=== PATIENT | female | born 1950 | race Caucasian/White ===

== ENCOUNTER 2021-08-02 18:44 | Inpatient (IN) | payer BC ==
--- NOTE | 2019-08-06 07:24 | NUR ---
GIVE PATIENT REPORT TO MORNING NURSE KEVIN . PATIENT IS ALERT AND ORIENTED X4
[~2021-08-02] VITALS: Ht 147.3 cm; Wt 65.8 kg
[2021-08-02 19:01] VITALS: BP 169/95
[2021-08-02] MEDS ORDERED: ACETAMINOPHEN EXTRA STRENGTH 500 MG TAB PO ONE (22:30)
[2021-08-02] MEDS ORDERED: KETOROLAC 30 MG/ML VIAL IM ONE (22:30)
--- NOTE | 2021-08-02 22:32 | NUR ---
PT TAKEN TO ER BED 12
--- NOTE | 2021-08-02 23:12 | NUR ---
71 Y/O FEMALE BIBS, C/O PAIN TO BACK S/P FALL. PT STATES SHE GOT DIZZY AND FELL AND HURT HER BACK. DENIES N/V/D; SKIN IS PINK/WARM/DRY; AAOX4 WITH WEAK AND UNSTEADY GAIT; LUNGS CLEAR BL; HR EVEN AND REGULAR; PT DENIES ANY FEVER, CP, SOB, OR COUGH AT THIS TIME; PATIENT STATES PAIN OF 10/10 ON PALPATION AT THIS TIME; VSS; PATIENT POSITIONED FOR COMFORT; HOB ELEVATED; BEDRAILS UP X2; BED DOWN. ER MD MADE AWARE OF PT STATUS. HX: HTN, DM NKA MED: TAKES A MED FOR HTN (UNK)
[2021-08-02 23:54] LABS: BASOPHILS % (AUTO) 0.4 % (0.0-2.0); EOSINOPHILS # (AUTO) 0.2 K/uL (0-0.4); EOSINOPHILS % (AUTO) 1.5 % (0.0-4.0); HEMATOCRIT 39.3 % (36-48); HEMOGLOBIN 13.2 g/dL (12.0-16.0); LYMPHOCYTES % (AUTO) 19.9 % (20.5-51.1); MEAN CORPUSCULAR HEMOGLOBIN 30 pg (27-31); MEAN CORPUSCULAR HGB CONC 34 g/dL (33-37); MEAN CORPUSCULAR VOLUME 90.4 fL (80-94); MONOCYTES # (AUTO) 0.6 K/uL (0.8-1.0); MONOCYTES % (AUTO) 6.1 % (1.7-9.3); NEUTROPHILS # (AUTO) 7.4 K/uL (1.8-7.7); NEUTROPHILS % (AUTO) 72.1 % (42.2-75.2); PLATELET COUNT (AUTO) 218 K/uL (140-450); RED BLOOD CELL COUNT(AUTO) 4.35 MIL/uL (4.20-5.40); RED CELL DISTRIBUTION WIDTH 13.2 % (11.6-13.7); WHITE BLOOD COUNT (AUTO) 10.2 K/uL (4.8-10.8)
[2021-08-03 00:02] LABS: APPEARANCE,URINE CLEAR (CLEAR); BILIRUBIN,URINE NEGATIVE (NEGATIVE); BLOOD, URINE TRACE-L (NEGATIVE); COLOR,URINE YELLOW (YELLOW); LEUKOCYTE ESTERASE ,URINE 1+ (NEGATIVE); NITRITE, URINE NEGATIVE (NEGATIVE); UGLUCOSE NEGATIVE (NEGATIVE)
[2021-08-03 00:14] LABS: RBC,URINE 0-5 /HPF (0-5)
[2021-08-03 00:16] LABS: ALBUMIN 3.5 g/dL (3.4-5.0); ANION GAP 10.6 (8-16); ASPARTATE AMINOTRANSFERASE 21 U/L (15-37); CARBON DIOXIDE 26.3 mmol/L (21-32); CHLORIDE 104 mmol/L (98-107); CREATININE 0.8 mg/dL (0.6-1.3); GLUCOSE 137 mg/dL (74-106); POTASSIUM 3.9 mmol/L (3.5-5.1); SODIUM SERUM 137 mmol/L (136-145); TOTAL BILIRUBIN 0.3 mg/dL (0.0-1.0); UREA NITROGEN, BLOOD 15 mg/dL (7-18)
[2021-08-03] MEDS ORDERED: cefTRIAXone 1,000 MG VIAL ONE (00:50)
--- NOTE | 2021-08-03 01:03 | NUR ---
SQL DATABASE PROGRAMMER AT BEDSIDE
--- NOTE | 2021-08-03 02:32 | NUR ---
COVID/REJI SWAB COLLECTED AND WALKED TO LAB.
[2021-08-03] MEDS ORDERED: ENAL-197 PO (02:33)
[2021-08-03] MEDS ORDERED: MORPHINE SULFATE 4 MG/ML SYR IVP PRN ×2 (03:10→03:15)
[2021-08-03] MEDS ORDERED: NACL 0.9% 1,000 ML IV SCH (03:10)
[2021-08-03] MEDS: NACL 0.9% 1,000 ML IV SCH ×4 (03:15→23:49)
--- NOTE | 2021-08-03 04:53 | NUR ---
Patient will be admitted to care of DR MAURICIO. Admited to TELE. Will go to room 104B. Belongings list completed. Report to NANDINI HUGGINS.
[2021-08-03 05:07] VITALS: BP 136/70
--- NOTE | 2021-08-03 05:15 | NUR ---
71/F BIB ED RN PAT AND EMT [facility] WITH CHIEF COMPLAINT OF S/P GROUND LEVEL FALL. A&OX4 PASHTO SPEAKING ONLY. PATIENT DOES NOT UNDERSTAND GAMBIAN. VERBALLY RESPONSIVE AND ABLE TO COMMUNICATE NEEDS. HEAD TO TOE ASSESSMENT COMPLETED WITH SHRADDHA TINSLEY. MARCO. PER MEDICAL RECORD, PATIENT FELT DIZZY BEFORE FALLING BUT DENIES LOC OR HEAD TRAUMA. PATIENT HAS AN IV SITE TO THE LAC 20G PATENT/INTACT WITH NS INFUSING AT 60 ML/HR. PATIENT IS CONTINENT OF VOID AND BM. SKIN IS INTACT. PATIENT IS AMBULATORY. MRSA SWAB COLLECTED. ID BAND APPLIED. ORIENTED TO CALL LIGHT, BED CONTROL, TV, VISITING HOURS, AND BATHROOM.
--- NOTE | 2021-08-03 06:53 | NUR ---
PATIENT HAS BEEN SCREENED AND CATEGORIZED LOW NUTRITION RISK. PATIENT WILL BE SEEN WITHIN 7 DAYS OF ADMISSION. 08/09/21 RECEIVED REFERRAL FOR NEWLY DIAGNOSED DIABETIC; NOT APPLICABLE [address]
--- NOTE | 2021-08-03 07:25 | NUR ---
ENDORSED PATIENT TO NANDINI EDEN FOR CONTINUITY OF CARE. PATIENT IS STABLE.
--- NOTE | 2021-08-03 07:26 | NUR ---
RECEIVED REPORT FROM STEAK SAUCE MAKER NURSE, BHAVNA, FOR CONTINUITY OF CARE. PT IS IN BED RESTING AT THIS TIME. RESPIRATIONS ARE EVEN AND UNLABORED ON ROOM AIR. PT IS ALERT AND ORIENTED X4, ABLE TO VERBALIZE NEEDS IN FAROESE ONLY. PT IS ON CARDIAC MONITORING, SR. PT IS ON REGULAR DIET, ABD IS NONTENDER, NONDISTENDED WITH BOWEL SOUNDS PRESENT. PT IS CONTINENT OF BOWEL AND BLADDER. PT SKIN IS WARM, DRY, AND INTACT. IV TO L AC 20G. CALL LIGHT WITHIN REACH. ALL SAFETY MEASURES IN PLACE. WILL CONTINUE TO MONITOR.
[2021-08-03 08:00] VITALS: BP 158/89
[2021-08-03] MEDS ORDERED: ONDANSETRON 4 MG/2 ML VIAL IM/IVP PRN (10:35)
[2021-08-03] MEDS ORDERED: POTASSIUM CHLORIDE 10 MEQ TABER PO PRN (10:35)
[2021-08-03] MEDS ORDERED: DOCUSATE SODIUM 100 MG GELCAP PO PRN (10:35)
[2021-08-03] MEDS ORDERED: ACETAMINOPHEN 325 MG TAB PO PRN (10:35)
[2021-08-03] MEDS ORDERED: ZOLPIDEM 5 MG TAB PO PRN (10:35)
[2021-08-03] MEDS ORDERED: guaiFENesin DM 200/20 MG-10 ML 10 ML UDC PO PRN (10:35)
[2021-08-03] MEDS: ENALAPRIL 10 MG TAB PO SCH (10:55)
--- NOTE | 2021-08-03 10:55 | NUR ---
ADMINISTERED SCHEDULED MEDICATION. EDUCATED PT REGARDING MEDS ADMINISTERED. PT VERBALIZED UNDERSTANDING. WILL CONTINUE TO MONITOR.
--- NOTE | 2021-08-03 11:29 | NUR ---
DC PLANNIN YRS OLD FEMALE PATIENT WAS ADMITTED FROM HOME WITH A DX OF UTI, FALL /LUMBAR SPINE FRACTURE. PATIENT HAS A HX OF HTN AND DM. CXR SHOWED NO EVIDENCE FOR ACUTE CARDIOPULMONARY DISEASE. XRAY AND CT LUMBER SPINE SHOWED ACUTE SUPERIOR ENDPLATE COMPRESSION FRACTURE OF THE [id number] BODY. RAPID COVID TEST NEGATIVE. ADMINISTERED IVF, IV ABX ROCEPHIN. URINE AND BLOOD CULTURE PENDING. CONSULT WITH ORTHO DR BERMAN. DC PLAN TO GO HOME WHEN STABLE. CM TO FOLLOW Addendum: 08/07/21 at 1254 by Nany Cruz RN DC PLANNING: RECEIVED A FAX FROM [employer] REQUESTING PROCEDURE NOTES AND DETAILES THAT WAS ON THE FORM. FAXED BACK THE FORM. RECEIVED A CALL FROM [facility]ARTA [facility] STATED [facility] IS DELEGATED. CALLED [facility] SPOKE WITH MOHIT [phone] REQUESTED THE ORDER TO BE FAX TO [phone] AND WILL CALL [employer]. CM TO FOLLOW Addendum: 08/07/21 at 1529 by Nany Cruz RN DC PLANNING: HAROON LOZANO AT [facility] [phone] STATED THEY APPROVED THE BRACE AND WILL SEND IT TO [facility] ETA AFTER 5PM . NOTIFIED MAURO LLANES.
--- NOTE | 2021-08-03 11:38 | NUR ---
NOTIFIED ORTHO DOCTOR DR. BERMAN VIA MESSAGE ABOUT NEW CONSULT FOR SPINAL FRACTURE PER DR. MAURICIO. WILL WAIT FOR RESPONSE.
[2021-08-03] MEDS: HYDROcodone/APAP 7.5/325 MG 1 TAB PO PRN ×2 (11:41→19:44)
--- NOTE | 2021-08-03 11:46 | NUR ---
PT COMPLAINTS OF PAIN, STATES PAIN IS 6/10. MEDICATED. WILL CONTINUE TO MONITOR.
[2021-08-03 12:00] VITALS: BP 145/75
[2021-08-03 12:46] LABS: PROTHROMBIN TIME 9.9 secs (10.8-13.4)
--- NOTE | 2021-08-03 12:46 | NUR ---
WENT TO RE-ASSESS PT PAIN. PT IN BED SLEEPING AT THIS TIME. RESPIRATIONS ARE EVEN AND UNLABORED. NO SIGNS OF PAIN OR DISCOMFORT NOTED. WILL CONTINUE TO MONITOR.
[2021-08-03 13:27] LABS: FREE T4 (FREE THYROXINE) 0.81 ng/dL (0.76-1.46); MAGNESIUM 1.9 mg/dL (1.8-2.4); THYROID STIMULATING HORMONE 4.15 uIU/mL (0.34-3.74)
--- NOTE | 2021-08-03 14:27 | NUR ---
DR MAURICIO HAD PLACED ORDER FOR CONSULT WITH DR BERMAN. INFORMED DR BERMAN THAT HE HAD CONSULT WITH PT FOR SPINAL FRACTURE. DR BERMAN REPLIED "I DONT DO SPINE" DR MAURICIO MADE AWARE. DR MAURIICO REPLIED "WE KNOW YOU DONT DO SPINE BUT RECOMMENDATIONS ARE APPRECIATED". TO THAT, DR BERMAN REPLIED "I DO NOT DO SPINE, THEREFORE I CANNOT GIVE RECOMMENDATIONS".
[2021-08-03 16:00] VITALS: BP 134/76
--- NOTE | 2021-08-03 17:02 | NUR ---
PT PRESSED CALL LIGHT. STATED SHE WANTED SOMEONE TO STAND BY WHILE SHE ATTEMPTS TO AMBULATE TO REST ROOM. ASSISTED PT TO REST ROOM. PT TOLERATED WELL. WILL CONTINUE TO MONITOR.
--- NOTE | 2021-08-03 19:37 | NUR ---
ENDORSED PT TO VASCULAR NURSE NURSE FOR CONTINUITY OF CARE. ALL NEEDS MET THROUGHOUT SHIFT. PT IS STABLE.
--- NOTE | 2021-08-03 19:38 | NUR ---
RECEIVED ENDORSEMENT FROM AM NURSE. PATIENT IS WELL RESTED, ON ROOM AIR. NO SOB NOTED. COMPLAINED OF MODERATE BACK PAIN, WILL MEDICATE. SAFETY MEASURES IN PLACE. IVF NS INFUSING AT 60 ML/HR. CALL LIGHT WITHIN REACH. DAUGHTER IN LAW AT BEDSIDE. WILL CONTINUE TO MONITOR PT.
[2021-08-03 20:00] VITALS: BP 144/73
--- NOTE | 2021-08-03 20:48 | NUR ---
ROCEPHINE ADMINISTERED ORDERED.
[2021-08-04] VITALS: BP 140/74
--- NOTE | 2021-08-04 01:10 | NUR ---
ANSWERED CALL LIGHT, NEEDS ATTENDED TO.
[2021-08-04] MEDS: NACL 0.9% 1,000 ML IV SCH ×2 (03:15→20:09)
[2021-08-04 04:00] VITALS: BP 128/62
--- NOTE | 2021-08-04 04:02 | NUR ---
PATIENT SLEEPING. OBSERVED CHEST RISE AND FALL. NO SOB NOTED. CALL LIGHT WITHIN REACH.
--- NOTE | 2021-08-04 07:10 | NUR ---
RECEIVED REPORT FROM PRESCHOOL SUBSTITUTE TEACHER NURSE FOR CONTINUITY OF CARE. PT IS SLEEPING AT THIS TIME EASILY AROUSABLE BY VERBAL STIMULI. RESPIRATIONS EVEN AND UNLABORED. NO SIGNS OF DISTRESS NOTED. A&O4. SKIN IS INTACT, DRY AND WARM TO TOUCH. IV AT LEFT WRIST G 22 INFUSING NS 60ML/HR. CALL LIGHT WITHIN REACH. SAFETY PRECAUTIONS IN PLACE. WILL CONTINUE TO MONITOR.
[2021-08-04 07:18] LABS: BASOPHILS % (AUTO) 0.3 % (0.0-2.0); EOSINOPHILS # (AUTO) 0.2 K/uL (0-0.4); HEMATOCRIT 37.5 % (36-48); HEMOGLOBIN 12.4 g/dL (12.0-16.0); LYMPHOCYTES % (AUTO) 24.1 % (20.5-51.1); MEAN CORPUSCULAR HEMOGLOBIN 30 pg (27-31); MEAN CORPUSCULAR HGB CONC 33 g/dL (33-37); MEAN CORPUSCULAR VOLUME 91.3 fL (80-94); MONOCYTES # (AUTO) 0.7 K/uL (0.8-1.0); MONOCYTES % (AUTO) 8.4 % (1.7-9.3); NEUTROPHILS # (AUTO) 5.4 K/uL (1.8-7.7); NEUTROPHILS % (AUTO) 65.2 % (42.2-75.2); PLATELET COUNT (AUTO) 204 K/uL (140-450); RED BLOOD CELL COUNT(AUTO) 4.11 MIL/uL (4.20-5.40); RED CELL DISTRIBUTION WIDTH 12.7 % (11.6-13.7); WHITE BLOOD COUNT (AUTO) 8.3 K/uL (4.8-10.8)
--- NOTE | 2021-08-04 07:20 | NUR ---
PATIENT IS STABLE. ENDORSED TO AM NURSE FOR CONTINUITY OF CARE
[2021-08-04 07:29] LABS: ANION GAP 10.9 (8-16); CARBON DIOXIDE 26.8 mmol/L (21-32); CHLORIDE 105 mmol/L (98-107); CREATININE 0.7 mg/dL (0.6-1.3); GLUCOSE 111 mg/dL (74-106); POTASSIUM 3.7 mmol/L (3.5-5.1); SODIUM SERUM 139 mmol/L (136-145); UREA NITROGEN, BLOOD 12 mg/dL (7-18)
[2021-08-04 08:00] VITALS: BP 153/76
[2021-08-04 08:08] LABS: T4 (THYROXINE) 7.6 ug/dL (4.5-12.0)
[2021-08-04] MEDS: ENALAPRIL 10 MG TAB PO SCH (09:07)
[2021-08-04] MEDS: PANTOPRAZOLE 40 MG TABEC PO SCH (09:07)
[2021-08-04] MEDS: HYDROcodone/APAP 7.5/325 MG 1 TAB PO PRN ×2 (09:11→20:12)
--- NOTE | 2021-08-04 09:11 | NUR ---
ALL MORNING MEDS ADMINISTERED. PT COMPLAINT OF PAIN 6/10 ON HER BACK. MEDICATED PER PRN ORDER. PT TEACHINGS ABOUT MEDS DONE. PT VERBALIZED UNDERSTANDING. WILL CONTINUE TO MONITOR.
--- NOTE | 2021-08-04 11:38 | NUR ---
PT IN BED WITH FAMILY AT BEDSIDE. NO SIGNS OF DISTRESS NOTED. PT AMBULATES TO THE REST ROOM TO URINATE.
[2021-08-04 12:00] VITALS: BP 120/66
--- NOTE | 2021-08-04 13:50 | NUR ---
PT SITTING AT BEDSIDE WITH FAMILY MEMBER. BREATHING EVEN AND UNLABORED AT ROOM AIR. WILL CONTINUE TO MONITOR.
[2021-08-04 16:00] VITALS: BP 127/68
--- NOTE | 2021-08-04 16:05 | NUR ---
PT IS SLEEPING AT THIS TIME, STILL WITH FAMILY MEMBER AT BEDSIDE. NO SIGNS OF DISTRESS NOTED. BREATHING EVENLY AND UNLABORED.
--- NOTE | 2021-08-04 19:15 | NUR ---
ENDORSED PT TO MARINE EQUIPMENT DESIGN ENGINEER NURSE FOR CONTINUITY OF CARE. ALL NEEDS MET THROUGHOUT SHIFT. PT IS STABLE.
[2021-08-04 20:00] VITALS: BP 122/67
--- NOTE | 2021-08-04 20:00 | NUR ---
GET REPORT FROM MORNING NURSE, PATIENT IS LYING ON BED ,PATIENT IS ALERT AND ORIENTED X4, NO ANY COMPLAIN OF SHORTNESS OF BREATH AT THIS TIME, PATIENT IS COMPLAINING PAIN 6/10, MEDICATED PATIENT, WILL REASSESS PAIN LEVEL , VITAL SIGN IS WITHIN THE NORMAL RANGE , ALL DUE MEDS ARE GIVEN PER DR ORDER, CALL LIGHT IS WITHIN THE REACH, WILL CONTINUE TO MONITOR
[2021-08-05] VITALS: BP 129/59
--- NOTE | 2021-08-05 | NUR ---
PATIENT IS LYING ON BED ,PATIENT IS ALERT AND ORIENTED X4, NO ANY COMPLAIN OF PAIN OR SHORTNESS OF BREATH AT THIS TIME, VITAL SIGN IS WITHIN THE NORMAL RANGE , ALL DUE MEDS ARE GIVEN PER DR ORDER, HELPED TO CHANGE PATIENT DIAPER, CALL LIGHT IS WITHIN THE REACH, WILL CONTINUE TO MONITOR
--- NOTE | 2021-08-05 02:56 | NUR ---
CHECKED PATIENT, PT IS SLEEPING. OBSERVED CHEST RISE AND FALL SYMMETRICALLY. NO SOB NOTED. CALL LIGHT WITHIN REACH.
[2021-08-05 04:00] VITALS: BP 142/74
--- NOTE | 2021-08-05 04:40 | NUR ---
PATIENT IS LYING ON BED ,PATIENT IS ALERT AND ORIENTED X4, NO ANY COMPLAIN OF PAIN OR SHORTNESS OF BREATH AT THIS TIME, VITAL SIGN IS WITHIN THE NORMAL RANGE , HELPED TO CHANGE PATIENT DIAPER, CALL LIGHT IS WITHIN THE REACH, WILL CONTINUE TO MONITOR
[2021-08-05 06:54] LABS: BASOPHILS % (AUTO) 0.4 % (0.0-2.0); EOSINOPHILS # (AUTO) 0.2 K/uL (0-0.4); EOSINOPHILS % (AUTO) 2.3 % (0.0-4.0); HEMATOCRIT 36.9 % (36-48); HEMOGLOBIN 12.3 g/dL (12.0-16.0); LYMPHOCYTES # (AUTO) 2.5 K/uL (2.5-16.5); LYMPHOCYTES % (AUTO) 35.7 % (20.5-51.1); MEAN CORPUSCULAR HEMOGLOBIN 30 pg (27-31); MEAN CORPUSCULAR HGB CONC 33 g/dL (33-37); MEAN CORPUSCULAR VOLUME 91.1 fL (80-94); MONOCYTES # (AUTO) 0.7 K/uL (0.8-1.0); MONOCYTES % (AUTO) 10.3 % (1.7-9.3); NEUTROPHILS # (AUTO) 3.6 K/uL (1.8-7.7); NEUTROPHILS % (AUTO) 51.3 % (42.2-75.2); PLATELET COUNT (AUTO) 202 K/uL (140-450); RED BLOOD CELL COUNT(AUTO) 4.05 MIL/uL (4.20-5.40); RED CELL DISTRIBUTION WIDTH 12.9 % (11.6-13.7)
[2021-08-05 07:09] LABS: ANION GAP 8.3 (8-16); CARBON DIOXIDE 29.3 mmol/L (21-32); CHLORIDE 106 mmol/L (98-107); CREATININE 0.8 mg/dL (0.6-1.3); GLUCOSE 103 mg/dL (74-106); POTASSIUM 3.6 mmol/L (3.5-5.1); SODIUM SERUM 140 mmol/L (136-145); UREA NITROGEN, BLOOD 10 mg/dL (7-18)
--- NOTE | 2021-08-05 07:30 | NUR ---
RECEIVED BEDSIDE REPORT FROM ONLINE USER EXPERIENCE STRATEGIST NURSE FOR CONTINUOS OF CARE, PT RESTING, NO DISTRESS NOTED, LITHUANIAN SPEAKING. IV TO LEFT FA 22G, PT ACCIDENTLY PULLED IT OUT, NEW IV INSERTED TO LEFT HAND 22G PATENT INTACT. PT ON ROOM AIR, NO SOB NOTED, INITIAL ASSESSMENT DONE, ALL SAFETY PRECAUTION MET, CALL LIGHT WITHIN REACH, WILL CONTINUE TO MONITOR.
[2021-08-05 08:00] VITALS: BP 161/82
--- NOTE | 2021-08-05 08:10 | NUR ---
DR ONOFRE AT BEDSIDE TALKING TO PT DAUGHTER AND PT.
[2021-08-05] MEDS: PANTOPRAZOLE 40 MG TABEC PO SCH (08:46)
[2021-08-05] MEDS: ENALAPRIL 10 MG TAB PO SCH (08:46)
[2021-08-05] MEDS: HYDROcodone/APAP 7.5/325 MG 1 TAB PO PRN ×2 (08:46→19:35)
--- NOTE | 2021-08-05 08:46 | NUR ---
DUE MEDICATIONS ADMINISTERED, PT TOLERATED WELL, NO DISTRESS NOTED, PT C/O PAIN TO THE BACK, MEDICATION GIVEN, WILL CONTINUE TO MONITOR.
--- NOTE | 2021-08-05 11:02 | NUR ---
PT STATED WANT TO SIT ON BEDSIDE CHAIR, PT WENT TO CHAIR WITH HELP OF STATE SUPERINTENDENT OF SCHOOLS AND FAMILY MEMBER WHO IS AT BEDSIDE, TOLERATED WELL, WILL CONTINUE TO MONITOR.
[2021-08-05 12:00] VITALS: BP 161/82
[2021-08-05] MEDS: NACL 0.9% 1,000 ML IV SCH (12:36)
--- NOTE | 2021-08-05 13:00 | NUR ---
PT RESTING, NO DISTRESS NOTED, WILL CONTINUE TO MONITOR.
[2021-08-05 16:00] VITALS: BP 124/55
--- NOTE | 2021-08-05 17:10 | NUR ---
PT SLEEPING, FAMILY AT BEDSIDE, WILL CONTINUE TO MONITOR.
--- NOTE | 2021-08-05 19:30 | NUR ---
ENDORSED PT TO CHORAL DIRECTOR NURSE FOR CONTINUOUS OF CARE.
--- NOTE | 2021-08-05 19:31 | NUR ---
RECEIVED REPORT FROM NURSE FOR CONTINUITY OF CARE.
--- NOTE | 2021-08-05 19:35 | NUR ---
PT C/O 11/28 BACK PAIN. NORCO 1 TAB 5/325 GIVEN. PT RESTING , DOZING. AT 2029 PT REPORTED SHE FELT BETTER, PAIN NOW A 4. L HAND 22G IV INFUSING NS @60CC/HR. PLAN BY ORTHO DR. KIMBLE, JEREMIAH IS TO D/C PT HOME SOON ASSHE GETS A TLSO BRACE.
[2021-08-06] MEDS: NACL 0.9% 1,000 ML IV SCH ×2 (05:23→21:55)
[2021-08-06 06:50] LABS: BASOPHILS % (AUTO) 0.6 % (0.0-2.0); EOSINOPHILS # (AUTO) 0.2 K/uL (0-0.4); EOSINOPHILS % (AUTO) 2.3 % (0.0-4.0); HEMATOCRIT 35.6 % (36-48); HEMOGLOBIN 11.9 g/dL (12.0-16.0); LYMPHOCYTES # (AUTO) 2.8 K/uL (2.5-16.5); LYMPHOCYTES % (AUTO) 39.4 % (20.5-51.1); MEAN CORPUSCULAR HEMOGLOBIN 31 pg (27-31); MEAN CORPUSCULAR HGB CONC 34 g/dL (33-37); MONOCYTES # (AUTO) 0.7 K/uL (0.8-1.0); MONOCYTES % (AUTO) 9.5 % (1.7-9.3); NEUTROPHILS # (AUTO) 3.4 K/uL (1.8-7.7); NEUTROPHILS % (AUTO) 48.2 % (42.2-75.2); PLATELET COUNT (AUTO) 210 K/uL (140-450); RED BLOOD CELL COUNT(AUTO) 3.91 MIL/uL (4.20-5.40); RED CELL DISTRIBUTION WIDTH 12.8 % (11.6-13.7); WHITE BLOOD COUNT (AUTO) 7.1 K/uL (4.8-10.8)
[2021-08-06 06:59] LABS: ANION GAP 11.4 (8-16); CARBON DIOXIDE 26.1 mmol/L (21-32); CHLORIDE 106 mmol/L (98-107); CREATININE 0.7 mg/dL (0.6-1.3); GLUCOSE 107 mg/dL (74-106); POTASSIUM 3.5 mmol/L (3.5-5.1); SODIUM SERUM 140 mmol/L (136-145); UREA NITROGEN, BLOOD 13 mg/dL (7-18)
--- NOTE | 2021-08-06 07:30 | NUR ---
PT SLEPT SOUNDLY ALL NIGHT. NS @60CC/HR INFUSING ORDERED. ENDORSED REPORT TO DAY SHIFT FOR FOLLOW UP CARE.
--- NOTE | 2021-08-06 07:46 | NUR ---
got report from the night nurse, pt resting in bed, iv fluid is infusing as ordered.[email or web address]
[2021-08-06] MEDS: PANTOPRAZOLE 40 MG TABEC PO SCH (08:30)
[2021-08-06] MEDS: ENALAPRIL 10 MG TAB PO SCH (08:30)
[2021-08-06] MEDS ORDERED: TRAM50TA1 PO (09:22)
[2021-08-06] MEDS ORDERED: CEPH-588 PO (09:26)
[2021-08-06 11:14] VITALS: BP 141/62
[2021-08-06 16:00] VITALS: BP 152/75
--- NOTE | 2021-08-06 19:30 | NUR ---
RECEIVED ENDORSEMENT FROM SHRADDHA WADE FOR CONTINUITY OF CARE. PATIENT IS AWAKE AND STABLE. A&OX4 NIUEAN SPEAKING ONLY. VERBALLY RESPONSIVE AND ABLE TO COMMUNICATE NEEDS. C/O LOWER BACK PAIN 5/10. WILL MEDICATE PER PRN ORDER. ON ROOM AIR WITH NO APPARENT S/SX OF ACUTE DISTRESS. RESPIRATIONS EVEN AND UNLABORED. AMBULATORY AND CONTINENT OF URINE AND VOID. IV SITE TO THE RIGHT HAND 22G IS PATENT/INTACT WITH NS INFUSING AT 60 ML/HR. PLAN OF CARE AND WHITE COMMUNICATION BOARD UPDATED. ALL SAFETY MEASURES IN PLACE. CALL LIGHT WITHIN REACH. BED IN LOW/LOCKED POSITION. WILL CONTINUE TO MONITOR.
[2021-08-06 20:00] VITALS: BP 145/81
--- NOTE | 2021-08-06 20:00 | NUR ---
Patient's Plan of Care was discussed and reviewed with NANDINI HUGGINS.
[2021-08-06] MEDS: HYDROcodone/APAP 7.5/325 MG 1 TAB PO PRN (20:08)
--- NOTE | 2021-08-06 21:00 | NUR ---
PATIENT'S IV SITE OBSTRUCTED. ESTABLISHED NEW LINE ON RIGHT HAND 22G. 1 ATTEMPT. TOLERATED WELL. RESPIRATIONS EVEN AND UNLABORED WITH NO APPARENT S/SX OF ACUTE DISTRESS. WHITE COMMUNICATION BOARD UPDATED. ALL SAFETY MEASURES IN PLACE. BED IN LOW/LOCKED POSITION. WILL CONTINUE TO MONITOR.
--- NOTE | 2021-08-07 01:00 | NUR ---
CHECKED PATIENT. PATIENT IS STABLE AND ASLEEP. CHEST IS RISING AND FALLING EVENLY WITH NO APPARENT S/SX OF ACUTE DISTRESS. WHITE COMMUNICATION BOARD UPDATED. ALL SAFETY MEASURES IN PLACE. CALL LIGHT WITHIN REACH. WILL CONTINUE TO MONITOR.
--- NOTE | 2021-08-07 03:00 | NUR ---
ROUNDED ON PATIENT. PATIENT IS STABLE AND ASLEEP. CHEST IS RISING AND FALLING EVENLY WITH NO APPARENT S/SX OF ACUTE DISTRESS. WHITE COMMUNICATION BOARD UPDATED. ALL SAFETY MEASURES IN PLACE. CALL LIGHT WITHIN REACH. WILL CONTINUE TO MONITOR.
--- NOTE | 2021-08-07 05:00 | NUR ---
CHECKED PATIENT. PATIENT IS STABLE AND ASLEEP. CHEST IS RISING AND FALLING EVENLY WITH NO APPARENT S/SX OF ACUTE DISTRESS. ALL NEEDS MET. WHITE COMMUNICATION BOARD UPDATED. ALL SAFETY MEASURES IN PLACE. CALL LIGHT WITHIN REACH. WILL CONTINUE TO MONITOR.
[2021-08-07 07:04] LABS: BASOPHILS % (AUTO) 0.4 % (0.0-2.0); EOSINOPHILS # (AUTO) 0.2 K/uL (0-0.4); EOSINOPHILS % (AUTO) 2.6 % (0.0-4.0); LYMPHOCYTES # (AUTO) 2.7 K/uL (2.5-16.5); LYMPHOCYTES % (AUTO) 43.9 % (20.5-51.1); MEAN CORPUSCULAR HEMOGLOBIN 30 pg (27-31); MEAN CORPUSCULAR HGB CONC 33 g/dL (33-37); MEAN CORPUSCULAR VOLUME 90.7 fL (80-94); MONOCYTES # (AUTO) 0.7 K/uL (0.8-1.0); NEUTROPHILS # (AUTO) 2.6 K/uL (1.8-7.7); NEUTROPHILS % (AUTO) 42.1 % (42.2-75.2); PLATELET COUNT (AUTO) 226 K/uL (140-450); RED BLOOD CELL COUNT(AUTO) 3.97 MIL/uL (4.20-5.40); RED CELL DISTRIBUTION WIDTH 12.8 % (11.6-13.7); WHITE BLOOD COUNT (AUTO) 6.2 K/uL (4.8-10.8)
--- NOTE | 2021-08-07 07:10 | NUR ---
ENDORSED PATIENT TO SHRADDHA WADE FOR CONTINUITY OF CARE. PATIENT IS STABLE.
[2021-08-07 08:00] VITALS: BP 145/81
[2021-08-07 08:10] LABS: ANION GAP 15.3 (8-16); CARBON DIOXIDE 26.6 mmol/L (21-32); CHLORIDE 105 mmol/L (98-107); CREATININE 0.8 mg/dL (0.6-1.3); GLUCOSE 99 mg/dL (74-106); POTASSIUM 3.9 mmol/L (3.5-5.1); SODIUM SERUM 143 mmol/L (136-145); UREA NITROGEN, BLOOD 14 mg/dL (7-18)
[2021-08-07] MEDS: PANTOPRAZOLE 40 MG TABEC PO SCH (08:20)
[2021-08-07] MEDS: ENALAPRIL 10 MG TAB PO SCH (08:22)
[2021-08-07] MEDS: HYDROcodone/APAP 7.5/325 MG 1 TAB PO PRN (12:27)
[2021-08-07] MEDS: NACL 0.9% 1,000 ML IV SCH (14:35)
[2021-08-07 16:50] VITALS: BP 137/50
--- NOTE | 2021-08-07 17:24 | NUR ---
patient discharged home, IV REMOVED, PT ESCORTED OUT VIA W\C WITH THE BACK BRACE IS ON INSTRUCTED BY THE COMPANY REP. NO DISCOMFORT PATIENT TRANSFERRED TO CAR WITHOUT PROBLEM WITH HER DAUGHTER.[email or web address]
== END 2021-08-07 17:24 | disposition home or self-care (01) | DRG 463 ==
LOC: MED 18:44 → MTU 08-03 03:13
PROVIDERS: ADMIT Family Medicine; ATTEND Family Medicine
DX: N39.0 Urinary tract infection, site not specified (principal); G93.41 Metabolic encephalopathy; S32.019A Unspecified fracture of first lumbar vertebra, initial encounter for closed fracture; G90.8 Other disorders of autonomic nervous system; E86.0 Dehydration; I10 Essential (primary) hypertension; Z20.822 Contact with and (suspected) exposure to COVID-19; N28.1 Cyst of kidney, acquired; W18.39XA Other fall on same level, initial encounter; Y93.89 Activity, other specified; Y92.89 Other specified places as the place of occurrence of the external cause; Y99.8 Other external cause status; Z79.899 Other long term (current) drug therapy
CPT/HCPCS: 36415; 71045; 72110; 72131; 80048; 80053; 81001; 82150; 83036; 83605; 83690; 83735; 83880; 84100; 84436; 84439; 84443; 84479; 84484; 85025; 85610; 85730; 87040; 87081; 87086; 92610; 93005; 96365; 96372; 97110; 97112; 97116; 97530; 99285; J0696; J1885; J7060; Q0092